=== PATIENT | female | born 1935 | race American Indian/Alaskan Native ===

== ENCOUNTER 2017-09-02 14:35 | Emergency (ER) | payer MEDICARE, OTHER ==
[~2017-09-02] VITALS: Ht 162.6 cm; Wt 77.1 kg
[~2017-09-02 14:35] MED LIST: AMLODIPINE BESYL5 MG PO; ASPIR-LOW81 MG PO; CALCIUM + VITA1 EACH PO; CLARITIN10 M2 PO; DAILY VITAMIN1 EAC2 PO; FERROUS SULFAT325 MG PO; HYDROCHLOROTHIA25 MG PO; JANUMET 50-1,01 EACH PO; LEVOTHYROXINE25 MCG PO; LIPITOR10 MG PO; METOPROLOL TART25 MG PO; MICARDIS80 MG PO; MONTELUKAST SOD10 MG PO; NITROGLYCERIN0.4 MG SL
[2017-09-02] MEDS ORDERED: FOLIC ACID1 MG PO (15:16)
[2017-09-02] MEDS ORDERED: ALPRAZOLAM0.25 MG PO (15:17)
[2017-09-02] MEDS ORDERED: PSEUDOEPHEDRINE60 MG PO (15:18)
[2017-09-02] MEDS ORDERED: FLOVENT DISKUS50 MCG INH (15:18)
[2017-09-02] MEDS ORDERED: MAGNESIUM400 M1 PO (15:19)
[2017-09-02] MEDS ORDERED: AVAPRO300 MG PO (15:19)
[2017-09-02] MEDS ORDERED: MONTELUKAST SOD10 MG PO (15:20)
[2017-09-02] MEDS ORDERED: XARELTO20 MG PO (15:20)
[2017-09-02] MEDS ORDERED: ZOFRAN ODT4 MG PO (15:28)
[2017-09-02] MEDS ORDERED: K-TAB ER20 MEQ PO (15:28)
[2017-09-02] MEDS ORDERED: TRANSDERM-SCOP1 EACH TD (15:29)
[2017-09-02] MEDS ORDERED: LASIX20 MG PO (16:43)
[2017-09-02] MEDS ORDERED: KLOR-CON M1010 MEQ PO (16:43)
--- NOTE | 2017-09-03 22:48 | EKG ---
[facility] [address] [facility] [place] [address] Signed Sinus bradycardia with premature atrial complexes ST \T\ T wave abnormality, consider lateral ischemia Abnormal ECG No previous ECGs available Confirmed by JUAREZ QUINTERO MD ([id number]) on 09/03/2017 10:48:43 PM Electronically Signed By: JUAREZ QUINTERO MD 09/03/17 2248 PATIENT NAME: PAULIE CARRASQUILLO Electrocardiogram DATE OF : 31 PHYSICIAN: JUAREZ QUINTERO MD REPORT #: [id number] REPORT IS CONFIDENTIAL AND NOT TO BE RELEASED WITHOUT AUTHORIZATION
== END 2017-09-02 17:15 | disposition home or self-care (01) ==
LOC: ED 14:35
DX: I11.0 Hypertensive heart disease with heart failure (principal); I50.9 Heart failure, unspecified; E11.9 Type 2 diabetes mellitus without complications; I48.91 Unspecified atrial fibrillation; D64.9 Anemia, unspecified; Z87.891 Personal history of nicotine dependence; Z88.8 Allergy status to other drugs, medicaments and biological substances; Z79.899 Other long term (current) drug therapy; Z79.82 Long term (current) use of aspirin
CPT/HCPCS: 71045; 80053; 81001; 83880; 84484; 85025; 85610; 85730; 93005; 93010; 99283

== ENCOUNTER 2017-09-05 01:15 | Observation (INO) | payer MEDICARE, OTHER ==
[~2017-09-05] VITALS: Ht 162.6 cm; Wt 75.8 kg
[~2017-09-05 01:15] MED LIST changes: +ALPRAZOLAM0.25 MG PO; +AVAPRO300 MG PO; +FLOVENT DISKUS50 MCG INH; +FOLIC ACID1 MG PO; +K-TAB ER20 MEQ PO; +KLOR-CON M1010 MEQ PO; +LASIX20 MG PO; +MAGNESIUM400 M1 PO; +PSEUDOEPHEDRINE60 MG PO; +TRANSDERM-SCOP1 EACH TD; +XARELTO20 MG PO; +ZOFRAN ODT4 MG PO
--- NOTE | 2017-09-05 04:47 | NUR ---
ADMIT TO CCU PER STRETCHER FROM THE ED. IS ALERT ORIENTED X3. ABLE TO STAND AND TRANSFER SELF FROM STRETCHER TO BED. DID ALSO USE BSC TO VOID. DR QUINTERO CALLED AND GIVEN UPDATE AND TO VERIFY IVF ORDER.
--- NOTE | 2017-09-05 06:29 | NUR ---
UP TO COMMODE TO VOID, JUAN FRANCISCO WELL. HR CONT TO BE VARIABLE.
--- NOTE | 2017-09-05 07:50 | NUR ---
PATIENT DENIES ANY PAIN, IN AFIB ON THE MONITOR AND HEART SOUNDS AND RADIAL PULSE IRREGULAR. RHONCHI THROUGHOUT ALL LUNG BOYCE, BUT NO SORTNESS OF BREATH OR RESPIRATORY DISTRESS. BOWEL TONES ACTIVE. IV PATENT AND FLUSHES WELL WITH 1/2 NS WITH 20KCL RUNNING AT 75MLS AN HOUR. PATIENT IS ALERT AND ORIENTED.
--- NOTE | 2017-09-05 07:50 | NUR ---
PATIENT DENIES ANY PAIN, IN AFIB ON THE MONITOR AND HEART SOUNDS AND RADIAL PULSES IRREGULAR. LUNG SOUNDS ARE CLEAR THROUGHOUT. BOWEL TONES ACTIVE. IV PATENT AND FLUSHES WELL WITH 1/2 NS WITH 20 OF KCL AT 75MLS/HR. PATIENT IS ALERT AND ORIENTED.
--- NOTE | 2017-09-05 10:00 | NUR ---
PATIENT STATUS UNCHANGED. PATIENT CAN MOVE HERSELF AROUND IN BED. FAMILY AT THE BEDSIDE VISITING.
--- NOTE | 2017-09-05 10:10 | NUR ---
PT AMBULATED TO BATHROOM VOIDED AND HAD BM AND THEM AMBUILATED TO BED. PT C/O SOB WHEN BACK TO BED AND THAT SHE IS TIRED. "I DID NOT SLEEP WELL LAST NIGHT". FAMILY AT THE BEDSIDE.
--- NOTE | 2017-09-05 11:15 | NUR ---
REPORT GIVEN TO NARCISO CCU RN. I AM PATIENT STATUS IS UNCHANGED. CONTINUES TO VISIT WITH FAMILY IN HER ROOM.
--- NOTE | 2017-09-05 12:08 | NUR ---
PT C/O BEING DIZZEY WHILE SITTING UP IN BED EATING LUNCH. HEART RATE ANY WHERE FROM 90'S TO 120'S AT TIMES. DAUGHTER REMAINS AT THE BEDSIDE.
--- NOTE | 2017-09-05 13:01 | NUR ---
PT ATE LUNCH JUAN FRANCISCO-WELL THEN AMBULATED TO THE BATHROOM VOIDED AND THEN BACK TO BED. JUAN FRANCISCO AMBULATION WELL WITH NO C/O'S THIS TIME. HEART RATE IN THE 120'S TO 130'S AND THEN WILL DROP TO THE 109"S.
--- NOTE | 2017-09-05 15:57 | EKG ---
[facility] [address] [place] [address] Signed Atrial fibrillation with rapid ventricular response ST depression, consider subendocardial injury Abnormal QRS-T angle, consider primary T wave abnormality Abnormal ECG When compared with ECG of 02-SEP-2017 14:42, Atrial fibrillation has replaced Sinus rhythm Vent. rate has increased BY 51 BPM Nonspecific T wave abnormality now evident in Inferior leads T wave inversion no longer evident in Lateral leads Confirmed by JUAREZ QUINTERO MD ([id number]) on 09/05/2017 3:57:00 PM Electronically Signed By: JUAREZ QUINTERO MD 09/05/17 1557 PATIENT NAME: PAULIE CARRASQUILLO Electrocardiogram DATE OF : 31 PHYSICIAN: JUAREZ QUINTERO MD REPORT #: [id number] REPORT IS CONFIDENTIAL AND NOT TO BE RELEASED WITHOUT AUTHORIZATION
--- NOTE | 2017-09-05 16:40 | NUR ---
IV PUSH LOPRESSOR GIVEN AT THIS TIME. PT REMAINS IN A-FIB, AND FAMILY REMAINS AT THE BEDSIDE.
--- NOTE | 2017-09-05 17:35 | NUR ---
IT WAS NOTED ON TELE #3 THAT PT HAD VERY LONG PAUSE. FELT LIGHT HEADED AND SLUMPED OVER IN THE BED. STAFF ENTERED ROOM PT COULD TALK AND HEART RATE NOTED TO BE IN THE 30'S TO 40'S PLACED BACK IN BED AND PACER PADS PLACE DR QUINTERO AT THE BED SIDE AND RT PRESENT. PAUSE MEAUSED 7.3 PLUS LONG AT THIS TIME. PT HAS ONE WORKING IV AT THIS TIME.
--- NOTE | 2017-09-05 17:59 | NUR ---
DR QUINTERO TALKING WITH [facility] PT IS IN THE PROCESS OF BEING TRANSFER TO A HIGHER LEVEL OF CARE. FAMILY REMAINS AT THE BEDSIDE. PT DENIES CHEST PAIN, OR PRESSURE AT THIS TIME OR WHEN SHE HAD THE PAUSE.
--- NOTE | 2017-09-05 18:51 | NUR ---
FAMILY REMAINS AT THE BEDSIDE, PT FELT LIGHT HEADED WHEN HEART RATE WAS 77 VIA MONITOR. PT IS IN THE PROCESS OF BEING TRANSFERED TO [facility] VIA FIXED WING. THE CREW WILL COME AND PACKAGE PT AND THEN TRANSPORT TO [place]. FAMILY IS AWARE AND HAS REMAINED AT THE BEDSIDE THROUGHTOUT THIS PROCESS.
--- NOTE | 2017-09-05 19:00 | NUR ---
[facility] ARIVED AND REPORT GIVEN ALL QUESTIONS ANSWERED. PT LEFT THE HOSPITAL AT 19:20.
--- NOTE | 2017-09-07 17:12 | EKG ---
[facility] [address] [facility] [place] [address] Signed Atrial fibrillation Cannot rule out Inferior infarct , age undetermined Abnormal ECG When compared with ECG of 05-SEP-2017 01:21, Inverted T waves have replaced nonspecific T wave abnormality in Inferior leads Nonspecific T wave abnormality now evident in Anterior leads Confirmed by JUAREZ QUINTERO MD ([id number]) on 09/07/2017 5:12:42 PM Electronically Signed By: JUAREZ QUINTERO MD 09/07/17 1712 PATIENT NAME: PAULIE CARRASQUILLO Electrocardiogram DATE OF : 31 PHYSICIAN: JUAREZ QUINTERO MD REPORT #: [id number] REPORT IS CONFIDENTIAL AND NOT TO BE RELEASED WITHOUT AUTHORIZATION
== END 2017-09-05 19:20 | disposition short-term general hospital (02) ==
LOC: ED 01:15 → CCU 01:16
PROVIDERS: ADMIT Internal Medicine
DX: I48.0 Paroxysmal atrial fibrillation (principal); R00.0 Tachycardia, unspecified; I35.0 Nonrheumatic aortic (valve) stenosis; I50.32 Chronic diastolic (congestive) heart failure; I10 Essential (primary) hypertension; E11.9 Type 2 diabetes mellitus without complications; E03.9 Hypothyroidism, unspecified; E78.5 Hyperlipidemia, unspecified; G47.33 Obstructive sleep apnea (adult) (pediatric); Z88.8 Allergy status to other drugs, medicaments and biological substances; Z79.01 Long term (current) use of anticoagulants; Z79.84 Long term (current) use of oral hypoglycemic drugs; Z79.82 Long term (current) use of aspirin; Z79.51 Long term (current) use of inhaled steroids; Z79.899 Other long term (current) drug therapy
CPT/HCPCS: 80053; 83735; 84484; 85025; 93005; 93010; 96365; 96374; 96375; 96376; 99152; 99291; G0378; J1160; J2704; J3475; J7030